=== PATIENT | female | born 1955 | race Caucasian/White ===

== ENCOUNTER 2025-02-17 13:08 | Outpatient (AMB) | payer MEDICARE, OTHER, SELFPAY ==
--- NOTE | 2025-02-17 13:13 | A.OFFPC_ITS ---
Vital Signs 02/17/25 13:14 Height 4 ft 10.27 in Weight 105 lb 2 oz BMI 21.8 BP 108/74 Blood Pressure Location Lt brachial Position Sitting Respiration 12 Pulse 86 Pulse Source Pulse Oximeter Temp 98.4 F Temp Source Oral Pulse Oximetry (%) 98 Oxygen Delivery Method Room Air Intake Visit Reasons: [facility] from [facility] / Thyroid med Intake Note: New patient visit Parking Lot Attendant Required: No Allergies Codeine Sulfate Allergy (Unknown, Uncoded 02/17/25 13:14) Unknown Tobacco use date assessed: 02/17/25 Fall risk assessment: No Falls in past year Last assessed Fall Risk: 02/17/25 Dental Screening Dental Screen Date: 02/17/25 Did you have a dental visit in the last 12 months?: Yes Did you have a dental problem in the last 6 months where you did not have access to dental care?: No Was dental information given to patient?: Patient has dentist HPI HPI Comments History of Present Illness Details Kaci is a 70 year old female with a past medical history of hypothyroid, osteopenia [facility]. Hypothyroid-On levothyroxine 100mcg daily. Notes last TSH in November-says normal Sees dermatology-Shara Hurtado Has seen hand ctr [facility]-they closed. History of wrist fracture remotely- repaired at [facility] 08/01/2016-10 years Mammogram 05/2024-[facility] DXA 01/2023 [facility]-11/14/2024 Tdap 09/2020 Shingrix Pneumo series 2020 RSV last year ROS CONSTITUTIONAL: Denies weight loss, fever and chills. HEENT: Denies changes in vision and hearing. RESPIRATORY: Denies SOB and cough. CV: Denies palpitations and CP GI: Denies abdominal pain, nausea, vomiting and diarrhea. : Denies dysuria and urinary frequency. MSK: Denies new myalgia and joint pain. SKIN: Denies rash and pruritus. NEUROLOGICAL: Denies headache PSYCHIATRIC: Denies recent changes in mood. PHYSICAL EXAM: GENERAL: Alert and oriented x 3. NAD EYES: EOMI. Anicteric. HENT: Moist mucous membranes. No scleral icterus. No cervical lymphadenopathy. LUNGS: Clear to auscultation bilaterally. CARDIOVASCULAR: Regular rate and rhythm. No murmur. No JVD. ABDOMEN: Soft, non-tender +bs EXTREMITIES: No edema. Non-tender. SKIN: No rashes or lesions. Warm. NEUROLOGIC: No focal neurological deficits. CN II-XII grossly intact PSYCHIATRIC: Cooperative. Appropriate mood and affect [facility] History History of carpal tunnel release H/O colonoscopy Family History Family/Other Colon cancer Breast cancer Brother Heart attack HTN (hypertension) Maternal Grandmother Brain tumor Maternal Grandfather Skin cancer Family/Other No problems noted. Maternal Aunt Breast cancer Mother Depression Anemia Cataract Father Cataract Stroke Sister Diabetes Social History Housing: House e-Cigarette/Vaping Use: Never Used Second Hand Smoke Exposure: No service: Yes Cognitive needs: No Hearing needs: Yes (hearing aid right side) Vision needs: Yes (glasses) Questionnaire PHQ-9 Over the last 2 weeks, how often have you been bothered by any of the following problems? 1. Little interest or pleasure in doing things: not at all 2. Feeling down, depressed, or hopeless: not at all 3. Trouble falling or staying asleep, or sleeping too much: not at all 4. Feeling tired or having little energy: not at all 5. Poor appetite or overeating: not at all 6. Feeling bad about yourself - or that you are a failure or have let yourself or your family down: not at all 7. Trouble concentrating on things, such as reading the newspaper or watching television: not at all 8. Moving or speaking so slowly that other people could have noticed. Or the opposite - being so fidgety or restless that you have been moving around a lot more than usual: not at all 9. Thoughts that you would be better off or of hurting yourself in some way: not at all Total score: 0 Depression Screening Interpretation: Negative Depression Screening Done: Yes [id number] - PHQ-9 Billing: Yes Source: Developed by Drs. Armando Lemus, Carmen Tan, Jeremias Lubin and colleagues, with an educational juliann from [employer] To Get Approved For. Thrive Questionnaire I am a: Patient What is your living situation today?: I have a steady place to live Within the past 12 months, did the food you bought not last and you didn't have the money to get more?: Never true Within the past 12 months, did you worry whether your food would run out before you got money to buy more?: Never true Do you have trouble paying for medicines?: No Do you have trouble getting transportation to medical appointments?: No Do you have trouble paying your heating and electricity bill?: No Do you have trouble taking care of your child, family member or friend?: No Do you have trouble with day-to-day activities such as bathing, preparing meals, shopping, managing finances, etc.?: No Are you currently unemployed and looking for a job?: No Are you interested in more education?: No Please select the resources that you would like help with: None Currently or been in a relationship where the following occur: No concerns reported THRIVE Score: 0 AUDIT C Alcohol Use Questionnaire (AUDIT-C) 1. How often do you have a drink containing alcohol?: 4 or more times a week 2. How many drinks containing alcohol do you have on a typical day when you are drinking?: 1 or 2 3. How often do you have six or more drinks on one occasion?: Never Total Score: 4 GEOVANNI-7 AMB Questionnaire GEOVANNI-7 Feeling nervous, anxious, or on edge: 0 = Not at all Not being able to stop or control worryin = Not at all Worrying too much about different things: 0 = Not at all Trouble relaxin = Not at all Being so restless that it is hard to sit still: 0 = Not at all Becoming easily annoyed or irritable: 0 = Not at all Feeling afraid as if something awful might happen: 0 = Not at all Total GEOVANNI-7 score (0-4 normal; 5-9 mild; 10-14 moderate; 15-21 severe): 0 Source: Developed by Drs. Armando Lemus, Carmen Tan, Jeremias Lubin and colleagues, with an educational juliann from [employer] To Get Approved For. Physical exam (Primary Care) Vital Signs: Last Vital Signs Temp 98.4 F 02/17/25 13:14 Pulse 86 02/17/25 13:14 Resp 12 02/17/25 13:14 BP 108/74 02/17/25 13:14 Pulse Ox 98 02/17/25 13:14 Oxygen Delivery Method Room Air 02/17/25 13:14 BMI result Body Mass Index 21.8 Tobacco/Smoking Status: Tobacco use Status Tobacco use date assessed 02/17/25 02/17/25 13:22 e-Cigarette/Vaping Use Never Used 02/17/25 13:22 PHQ-9: PHQ-9 Score PHQ-9: Total score 0 02/19/25 14:49 Depression Screening Interpretation: Negative Currently or been in a relationship where the following occur: No concerns reported Coding Level of Care Code New Pt Level 4 (25578) Complex EM visit Add On G2211 Diagnoses Hypothyroidism, unspecified type E03.9 Hypothyroidism type: unspecified Osteopenia, unspecified location M85.80 Osteopenia location: unspecified Additional Codes PHQ-9 - 97511 - PHQ-9 Billing: Yes ([id number]) Assessment & Plan Assessment & Plan (1) Hypothyroid: Code(s): E03.9 - Hypothyroidism, unspecified Category: Medical Qualifiers: Hypothyroidism type: unspecified Qualified Code(s): E03.9 - Hypothyroidism, unspecified (2) Osteopenia: Code(s): M85.80 - Other specified disorders of bone density and structure, unspecified site Category: Medical Qualifiers: Osteopenia location: unspecified Qualified Code(s): M85.80 - Other specified disorders of bone density and structure, unspecified site Plan 70 year old to establish care Past medical, surgical social reviewed Hypothyroid-stable on levothyroxine. lasbs ordered Osteopenia-continue supplements Orders: Orders Complete Blood Count Auto Diff 02/17/25 E03.9 - Hypothyroidism, unspecified, M85.80 - Other specified disorders of bone density and structure, unspecified site, Z13.0 - Encounter for screening for diseases of the blood and blood- forming organs and certain disorders involving the immune mechanism, Z13.220 - Encounter for screening for lipoid disorders, Z13.228 - Encounter for screening for other metabolic disorders, Z76.89 - Persons encountering health services in other specified circumstances Comprehensive Met. Panel 02/17/25 E03.9 - Hypothyroidism, unspecified, M85.80 - Other specified disorders of bone density and structure, unspecified site, Z13.0 - Encounter for screening for diseases of the blood and blood-forming organs and certain disorders involving the immune mechanism, Z13.220 - Encounter for screening for lipoid disorders, Z13.228 - Encounter for screening for other metabolic disorders, Z76.89 - Persons encountering health services in other specified circumstances TSH reflex Free T4 02/17/25 E03.9 - Hypothyroidism, unspecified, M85.80 - Other specified disorders of bone density and structure, unspecified site, Z13.0 - Encounter for screening for diseases of the blood and blood-forming organs and certain disorders involving the immune mechanism, Z13.220 - Encounter for screening for lipoid disorders, Z13.228 - Encounter for screening for other metabolic disorders, Z76.89 - Persons encountering health services in other specified circumstances Lipid Panel 02/17/25 E03.9 - Hypothyroidism, unspecified, M85.80 - Other specified disorders of bone density and structure, unspecified site, Z13.0 - Encounter for screening for diseases of the blood and blood-forming organs and certain disorders involving the immune mechanism, Z13.220 - Encounter for scre ening for lipoid disorders, Z13.228 - Encounter for screening for other metabolic disorders, Z76.89 - Persons encountering health services in other specified circumstances Vitamin D 25-OH (D2 and D3) 02/17/25 E03.9 - Hypothyroidism, unspecified, M85.80 - Other specified disorders of bone density and structure, unspecified site, Z13.0 - Encounter for screening for diseases of the blood and blood- forming organs and certain disorders involving the immune mechanism, Z13.220 - Encounter for screening for lipoid disorders, Z13.228 - Encounter for screening for other metabolic disorders, Z76.89 - Persons encountering health services in other specified circumstances
[2025-02-17 13:14] VITALS: BP 108/74; PULSE 86; RESP 12; TEMP 36.9; O2SAT 98; BMI 21.8
--- OUTSIDE RECORDS SUMMARY | 2025-02-17 18:15 | XMS_ITS ---
Author Name [facility] Organization Unknown Care Team Organization Name Specialty Phone Email Start Date End Da te [facility] 04/12/20222023
--- OUTSIDE RECORDS SUMMARY | 2025-02-17 18:15 | XMS_ITS | Clinical Summary ---
Author Organization [facility] [address] [facility] lding Address [address] [place] [address] Phone Care Team Providers Care Tile Roofer Name Role Phone Jasmine Middleton MD Primary Care Provider [phone] Allergies Active Allergy Reactions Criticality Noted Date Comments Codeine Hivolivia,Unknown Medium 08/19/2005 Mold 12/31/2020 Other 12/31/2020 Seasonal Medications calcium carbonate 1,500 mg (600 mg elemental calcium) tablet Take 800 mg by mouth daily. Active multivitamin with minerals (MULTIPLE VITAMIN-MINERALS ORAL) Take by mouth 2 Times Daily. Active estradioL (ESTRACE) 0.01 % (0.1 mg/gram) vaginal cream Use nightly x2 weeks, the 2x per week 1 Active ascorbic acid (VITAMIN C) 500 mg tablet 2 qd Active nystatin-triamcinol one (MYCOLOG II) ointment Apply a thin layer twice daily for two weeks, then nightly 30 g 5 Active levothyroxine (SYNTHROID, LEVOTHROID) 100 mcg tabletIndications:A cquired hypothyroidism Take 1 tablet (100 mcg total) by mouth 1 (one) time each day. 90 tablet 1 5 Active Active Problems Problem Noted Date Diagnosed Date Lichen sclerosus of vulva 11/14/2024 Lumbar stenosis with neurogenic claudication Vaginal dryness, menopausal 01/01/2021 Overview (02/29/2024): Last Assessment & Plan: Rx for vaginal estrace cream given. Reviewed instructions for use. Lightheadedness 07/21/2015 Atrophic vaginitis 01/15/2015 Hypothyroidism 08/19/2005 Encounters Date Type Department Care Team Description 01/06/2025 Telephone Internal Medicine - [address] [id number] Jasmine Middleton MD 11/25/2024 Telephone Internal Medicine - [address] [phone] Camryn Mcfarlane MA from Last 3 Months Immunizations Name Administration Dates Next Due COVID-19 (Moderna/Spikevax) 12yo and older 08/20/2023,03/07/2023 Hepatitis A Adult (Havrix; V aqta) 19yo and older 05/17/2002,03/11/2002 Hepatitis B (Jsecsog-L-Pdhms , Recombivax HB-Adult) 19yo and older 10/02/2020,03/06/2019 IPV Inactivated polio (Ipol) 6wks and older 05/17/2002 Influenza Quadravalent, 0.5m l (Fluad) 65yo and older 03/04/2021 Influenza Quadravalent, 0.5m l (Fluzone High-dose) 65yo and older 03/25/2023,03/09/2020 Influenza Quadravalent, MDCK , 0.5ml, with preservative (Flucelvax) 6mo and older 03/09/2020,02/21/2018,05/25/2017 Influenza trivalent, 0.5mL ( Fluzone High-dose) 65yo and older 04/10/2024,03/25/2023,03/24/2022,02/19,03/29/2016,05/12/2015,04/30/2013 ,04/04/2012 Influenza trivalent, with pr eservative (Fluzone; Afluria) 6mo and older 03/29/2016,05/12/2015,04/30/2013,04/04,05/08/2008 Influenza, Unspecified 03/09/2020 Meningococcal Polysaccharide 05/17/2002 Pfizer SARS-CoV-2 COVID-19, mRNA, LNP-S, preservative free 07/31/2020,07/10/2020 Pneumococcal conjugate 13 va lent (Prevnar 13, PCV13) 2mo and older 03/09/2020 Pneumococcal polysaccharide 23 valent (Pneumovax 23) 2yo and older 10/19/2022,03/09/2020 RSV, bivalent, protein subun it RSVpreF, 0.5mL, Preservative Free (ABRYSVO) 60yo and older or 32 through 36 wks of 02/19/2024 Td Tetanus diptheria (Tdvax) 7yo and older 09/04/2000,09/04/2000 Td, Unspecified 09/04/2000 Tdap Tetanus diptheria acell ular pertussis (Boostrix; Adacel) 7yo and older 09/22/2020,10/01/2009 Typhoid VICPS (Typhim Vi) 2y o and older 03/11/2002 Yellow Fever (YF-VAX) 9mo and older 03/11/2002 Zoster Live 05/12/2015 Zoster recombinant (Shingrix ) 19yo and older 05/24/2019,02/19/2019 Surgical History Surgery Date Site/Laterality Comments OTHER SURGICAL HISTORY 09/08 PROCEDURE: IN OPEN TX TRANS-SCAPHOPERILUNAR FRACTURE DISLC; COMMENT: Left wrist dhiraj repair CARPAL TUNNEL RELEASE 03/10 PROCEDURE: IN NEUROPLASTY &/TRANSPOS MEDIAN NRV CARPAL TUNNE OTHER SURGICAL HISTORY 07/15 PROCEDURE: IN EXC B9 LESION MRGN XCP SK TG T/A/L 0.5 CM/<; COMMENT: left axillary cyst removed COLONOSCOPY 07/04/06 PROCEDURE: HISTORICAL COLONOSCOPY; COMMENT: normal OTHER SURGICAL HISTORY 08/01/16 PROCEDURE: COLON CA SCRN NOT HI RSK IND; COMMENT: normal; repeat in 10 yrs Medical History Medical History Date Comments Unspecified hypothyroidism DX:Un specified hypothyroidism Pure hypercholesterolemia DX:Pur e hypercholesterolemia Venereal disease, unspecified DX :Venereal disease, unspecified; COMMENT: Herpes genitalis Atrophic vaginitis DX:Atrophic v aginitis Lightheadedness 07/21/2015 DX:Lightheadedne ss CTS (carpal tunnel syndrome) Herpes Varicella Family History Medical History Relation Name Comments Ovarian cancer Aunt maternal Hypertension Brother 1 Brother Heart attack Brother 2 Hyperlipidemia Father Dad high, also ca rotid stenosis Other: cataracts Father Dad Prostate cancer Father Dad Stroke Father Dad Other: skin problems Maternal Grandfather Other cancer Maternal Grandmother brain t umor Anemia Mother Depression Mother Other: Covid Mother Other: cataracts Mother Other: tmj Mother Other cancer Mother's side ovarian, aunt Breast cancer Other 1 mat aunt x3 3 materanl aun ts Breast cancer Other 2 mat cousin x's2 2 maternal cousins - in 40s and 50s Colon cancer Other 3 niece under 50 Diabetes Sister 1 Sister Relation Name Status Comments Aunt maternal Brother 1 Brother Brother 2 Brother 3 Alive HTN, hernia; ty pe 2 diabetic; DVT Brother 4 Alive [place] over age 50 Father Dad Prostate cancer , chol, cataracts,HTN,COLON POLYPS, pagets, karposis sarcoma on feet Maternal Grandfather (Age 80s) N at causes Maternal Grandmother (Age 77) Br ain tumor Mother Depression, [place] prolapse, TMJ, b12 def, cataracts,BREAST CYSTS,TRIGEMINAL NEURALGIA Mother's side Other 1 mat aunt x3 Alive Other 2 mat cousin x's2 Other 3 Alive Paternal Grandfather (Age 60s) U [place] Paternal Grandmother (Age 102) O ld age Sister 1 Sister Sister 2 Alive Healthy Sister 3 Alive DM I since teen ager Sister 4 Alive Healthy Social History Tobacco Use Types Packs/Day Years Used Date Smoking Tobacco: Never Smokeless Tobacco: Never Tobacco Cessation:Counseling Given: Not Answered Alcohol Use Standard Drinks/Week Comments Yes 14 (1 standard drink = 0.6 oz pu re alcohol) Housing Instability Answer Date Recorde d Are you worried that in the next 2 months you may not have stable housing? No 04/04/2024 Food Access & Nutrition Answer Date Rec orded Do you have access to a vari ety of food including fruits and vegetables? Yes 04/04/2024 Health Literacy Answer Date Recorded How often do you need to hav e someone help you when you read instructions, pamphlets, or other written material from your doctor or pharmacy? Never 04/04/2024 Caregiver: How often do you need to have someone help you when you read instructions, pamphlets, or other written material from your doctor or pharmacy? Not on file 04/04/2024 Transportation Answer Date Recorded Has the lack of transportati on kept you from meetings, work, or from getting things needed for daily living? No Has the lack of transportati on kept you from medical appointments or from getting medications? No 04/04/2024 Social Isolation Answer Date Recorded How often do you feel lonely or isolated from th ose around you? Never 04/04/2024 Food Risk Answer Date Recorded Within the past 12 months we worried whether our food would run out before we got money to buy more. Never true 04/04/2024 Within the past 12 months th e food we bought just didn't last and we didn't have money to get more. Never true 04/04/2024 Living Situation Answer Date Recorded What is your living situation? 1 Comments No Sex and Gender Information Value Date Recorded Sex Assigned at Female 05/21/2024 8:30 AM EST Legal Sex Female 2:04 PM EST Gender Identity Female 05/21/2024 8:30 AM EST Sexual Orientation Straight 05/21/2024 8: 30 AM EST Obstetrics History Para Term AB IAB SAB Ectopic Multiple Livin g Live Births 0 0 0 0 0 0 0 0 Last Filed Vital Signs Vital Sign Reading Time Taken Comments Blood Pressure 113/70 11/14/2024 10:31 AM EDT Pulse 74 11/14/2024 10:31 AM EDT Temperature 36.1 C (97 F) 04/11/2024 1:20 PM EST Respiratory Rate 12 11/14/2024 10:31 AM EDT Oxygen Saturation - - Inhaled Oxygen Concentration - - Weight 47.7 kg (105 lb 3.2 oz) 11/14/2024 10:31 AM EDT Height 152.4 cm (5') 11/14/2024 10:31 AM EDT Body Mass Index 20.55 11/14/2024 10:31 AM EDT Plan of Treatment Upcoming Encounters Date Type Department Care Team (Late st Contact Info) Description 04/15/2025 10:45 AM EST Appointment Bone Density - [facility] [address] [place] [phone] Health Maintenance Due Date Last Done Comments IPV Vaccines (2 of 3 - Adult catch-up series) 06/14/2002 05/17/2002 Hepatitis B Vaccines (3 of 3 - 19+ 3-dose series) 11/27/2020 10/02/2020, 03/06/2019 Medicare Annual Wellness Visit 05/14/2022 Falls Risk Assessment 04/20/2024 04/20/2023 Influenza Vaccine (#1) 2025 , 03/25/2023, 03/25/2023, Additional history exists Social Influencers of Health Screening 04/04/2025 04/04/2024 Breast Cancer Screening 05/22/2026 05/22/20 24, 04/24/2023, 04/19/2022, Additional history exists Colorectal Cancer Screening: Colonoscopy 08/01/2026 08/01/2016 Cholesterol Screening (Lipid Panel) 10/22/2028 10/23/2023, 10/23/2023 DTaP,Tdap,and Td Vaccines (6 - Td or Tdap) 09/22/2030 09/22/2020, 10/01/2009, 09/04/2000, Additional history exists Osteoporosis Screening (Bone Density Screening) 02/01/2033 02/01/2023, 10/12/2020 Hepatitis A Vaccines Aged Out 05/17/2002, 03/11/20 02 No longer eligible based on patient's age to complete this topic Meningococcal ACWY Vaccine Aged Out 05/17/2002 N o longer eligible based on patient's age to complete this topic Hepatitis C Screening Completed 04/25/2013 Zoster Vaccines Completed 05/24/2019, 02/03, 05/12/2015 Pneumococcal Vaccine: 50+ Years Completed 10/19/2022, 03/09/2020, 03/09/2020 RSV Immunization Adult Patients Completed 02/19/2024 COVID-19 Vaccine Completed 08/28/2024, , 08/20/2023, Additional history exists Depression Screening Completed 11/08/2024 HIB Vaccines Aged Out No longer eligi ble based on patient's age to complete this topic HPV Vaccines Aged Out No longer eligi ble based on patient's age to complete this topic MMR Vaccines Aged Out No longer eligi ble based on patient's age to complete this topic Meningococcal B Vaccine Aged Out No l onger eligible based on patient's age to complete this topic RSV Immunization Patients Under 20 months Aged Out No longer eligible based on patient's age to complete this topic Varicella Vaccines Aged Out No longer eligible based on patient's age to complete this topic Procedures Procedure Name Priority Date/Time Associated Diagnosis Comments MG MAMMO DIGITAL SCREENING W JONATHAN BILAT Routine 05/22/2024 11:28 AM EST Encounter for screening mammogram for breast cancer LIPID PANEL Routine 10/23/2023 FALLS RISK ASSESSMENT Routine 04/20/2023 DXA BONE DENSITY STUDY 1+ SITS AXIAL SKEL Routine 02/01/2023 9:28 AM EDT Encounter for general adult medical examination without abnormal findings COLONOSCOPY Routine 08/01/2016 HEPATITIS C SCREENING Routine 04/25/2013 from Last 3 Months or Most Recently Relevant to Health Maintenance Results * MG Mammo Digital Screening w Jonathan bilat (05/22/2024 11:28 AM EST) Anatomical Region Laterality Modality Breast Bilateral Mammography 05/24/2024 2:42 PM EST Impressions 05/24/2024 2:47 PM EST Benign. BI-RADS CATEGORY: 1 - NEGATIVE RECOMMENDATION: Screening bilateral mammogram is recommended in 1 year. Mammo Location: [facility], [address] [place] [address], [id number], . -------- FINAL REPORT -------- Dictated By: NED GLASGOW Dictated Date: 05/24/2024 14:42 ET Assigned Physician: NED GLASGOW Reviewed and Electronically Signed By: NED GLASGOW Signed Date: 05/24/2024 14:47 ET Workstation ID: [id number] Transcribed By: Self Edit Transcribed Date: 05/24/2024 14:42 ET Narrative 05/24/2024 2:47 PM EST CLINICAL: 69 years old, Female, routine annual exam. The patient has 3 maternal aunts and 2 maternal cousins with breast cancer. This no personal history of breast cancer is reported. COMPARISON: 05/24/2023 through 03/04/2021 TECHNIQUE: Bilateral MLO and CC views were obtained digitally with 3-D mammogram (digital breast tomosynthesis). Computer-aided detection was utilized in evaluation of this exam (CAD). FINDINGS: There is no evidence of suspicious mass or architectural distortion. No worrisome calcifications are evident. There has been no significant change from prior exam(s). BREAST DENSITY: C - The breasts are heterogeneously dense which may obscure small masses. Procedure Note Ned Glasgow MD - 05/24/2024 CLINICAL: 69 years old, Female, routine annual exam. The patient has 3maternal aunts and 2 maternal cousins with breast cancer. This nopersonal history of breast cancer is reported. COMPARISON: 05/24/2023 through 03/04/2021 TECHNIQUE: Bilateral MLO and CC views were obtained digitally with 3-Dmammogram (digital breast tomosynthesis). Computer-aided detection wasutilized in evaluation of this exam (CAD). FINDINGS: There is no evidence of suspicious mass or architectural distortion. Noworrisome calcifications are evident. There has been no significantchange from prior exam(s). BREAST DENSITY: C - The breasts are heterogeneously dense which mayobscure small masses. IMPRESSION: Benign. BI-RADS CATEGORY: 1 - NEGATIVE RECOMMENDATION: Screening bilateral mammogram is recommended in 1 year. Mammo Location: [facility], [address] [place] [address], [id number], . -------- FINAL REPORT -------- Dictated By: NED GLASGOW Dictated Date: 05/24/2024 14:42 ET Assigned Physician: NED GLASGOW Reviewed and Electronically Signed By: NED GLASGOW Signed Date: 05/24/2024 14:47 ET Workstation ID: [id number] Transcribed By: Self Edit Transcribed Date: 05/24/2024 14:42 ET us Self Referral Sppl IMG BI PROCEDURES Final Resul t * (ABNORMAL) Lipid panel (10/23/2023) LDL/HDL Ratio 2 0 - 4 Triglycerides 74 0 - 150 mg/dL Cholesterol 257(A) 0 - 200 mg/dL HDL 114 >=40 mg/dL LDL Cholesterol 129(A) 0 - 100 mg/dL Blood Venous blood specimen / Unknown Historical Provider LAB BLOOD ORDERABLES Toshia l Result * Falls Risk Assessment (04/20/2023) [facility] Falls Risk Assessment Abstracted Historical Provider HEALTH MAINTENANCE Final Result * DXA BONE DENSITY STUDY 1+ SITS AXIAL SKEL (02/01/2023 9:28 AM EDT) Anatomical Region Laterality Modality Bone Densitometr y 10/19/2022 3:23 PM EDT Narrative 02/01/2023 10:23 AM EDT BONE DENSITY (DEXA) Lumbar Spine T-score is 0.0. (SD relative to 20-29 y/o adult) Z-score is 2.0. (SD relative to age matched peers) This is considered normal by WHO criteria. Left Hip T-score is -2.2. Z-score is -0.5. This is considered osteopenia by WHO criteria. IMPRESSION: Patient is considered to have osteopenia by WHO criteria. This patient has an 11% risk of major osteoporotic fracture and a 2.2% risk of hip fracture over the next 10 years. (World Health Organization Fracture Risk Assessment) [facility] Department of Internal Medicine recommends using National Osteoporosis Foundation (NOF) guidelines in treatment decisions related to osteoporosis. NOF guidelines suggest considering treatment for postmenopausal women and men aged 50 or older presenting with the following: History of hip or vertebral fracture. T-score = -2.5 (DXA) at the femoral neck, total hip, or spine, after appropriate evaluation to exclude secondary causes. Low bone mass (T-score between -1.0 and -2.5 at the femoral neck or spine) AND a 10-year probability of a hip fracture = 3% OR a 10-year probability of a major osteoporosis-related fracture = 20% based on the [place]-adapted WHO algorithm Please note that all treatment decisions require clinical judgment and consideration of individual patient factors, including patient preferences, co-morbidities, previous drug use, risk factors not captured in the FRAX model (e.g., frailty, falls, vitamin D deficiency, increased bone turnover, interval significant decline in bone density) and possible under- or over-estimation of fracture risk by FRAX. Optional alternative screening schedule based on cindy Barrera., [facility] June 23, 2011 for patients with osteopenia (based on hip BMD T-score) is as follows: * advanced osteopenia (T scores -2.00 to -2.49), BMD testing every year * moderate osteopenia (T scores -1.50 to -1.99), BMD testing every 5 years mild osteopenia or normal BMD (T scores -1.50 and higher), BMD testing every 15 years Procedure Note Rona Lofton MD - 07/11/2023 BONE DENSITY (DEXA) Lumbar Spine T-score is 0.0. (SD relative to 20-29 y/o adult) Z-score is 2.0. (SD relative to age matched peers) This is considered normal by WHO criteria. Left Hip T-score is -2.2. Z-score is -0.5. This is considered osteopenia by WHO criteria. IMPRESSION: Patient is considered to have osteopenia by WHO criteria. This patient hasan 11% risk of major osteoporotic fracture and a 2.2% risk of hip fracture over the next 10years. (World Health Organization Fracture Risk Assessment) [facility] Department of Internal Medicinerecommends using National Osteoporosis Foundation (NOF) guidelines in treatment decisionsrelated to osteoporosis. NOF guidelines suggest considering treatment forpostmenopausal women and men aged 50 or older presenting with the following: History of hip or vertebral fracture. T-score = -2.5 (DXA) at the femoral neck, total hip, or spine, afterappropriate evaluation to exclude secondary causes. Low bone mass (T-score between -1.0 and -2.5 at the femoral neck or spine)AND a 10-year probability of a hip fracture = 3% OR a 10-year probability of a majorosteoporosis-related fracture = 20% based on the [place]-adapted WHO algorithm Please note that all treatment decisions require clinical judgment andconsideration of individual patient factors, including patient preferences, co- morbidities,previous drug use, risk factors not captured in the FRAX model (e.g., frailty, falls, vitaminD deficiency, increased bone turnover, interval significant decline in bone density) andpossible under- or over-estimation of fracture risk by FRAX. Optional alternative screening schedule based on cindy Barrera., NEJMJanuary 2011 for patients with osteopenia (based on hip BMD T-score) is as follows: * advanced osteopenia (T scores -2.00 to -2.49), BMD testing every year * moderate osteopenia (T scores -1.50 to -1.99), BMD testing every 5years mild osteopenia or normal BMD (T scores -1.50 and higher), BMD testingevery 15 years Arnold Tirado DO [facility] DXA PROCEDURES Final Result * Colonoscopy (08/01/2016) Pathologist [facility] Colonoscopy No Interpretation , Abstracted Anatomical Region Laterality Modality Other Historical Provider HEALTH MAINTENANCE Final Result * Hepatitis C Screening (04/25/2013) Pathologist [facility] Hepatitis C Screening Abstracted [facility] Provider HEALTH MAINTENANCE Final Result from Last 3 Months or Most Recently Relevant to Health Maintenance Insurance [facility] Care Teams Tile Roofer Relationship Specialty Start Date End Date Jasmine Middleton MD [address] [facility] [place] [phone] PCP - General Internal Medicine 10/25/24
--- OUTSIDE RECORDS SUMMARY | 2025-02-17 18:15 | XMS_ITS | Clinical Summary ---
Author Organization [facility] Address [address] [place] [address] Care Team Providers Care Superintendent Transportation Name Role Phone Arsenio Huber MD Primary Care Provider [phone] Allergies Active Allergy Reactions Criticality Noted Date Comments Shu Other (See Comments) Medium 08/19/2005 Seasonal 12/31/2020 Medications Medication Sig Dispensed Refills Start Date End Date Status ascorbic acid (VITAMIN C) 500 MG tablet Take by mouth. 0 Active Synthroid 100 MCG tablet 0 04/20/2021 Active Calcium Carbonate-Vitamin D 600-200 MG-UNIT TABS Take by mouth. 0 Active Family History Medical History Relation Name Comments Clotting disorder Brother Diabetes Brother Cancer Father Relation Name Status Comments Brother Father Social History Tobacco Use Types Packs/Day Years Used Date Smoking Tobacco: Never Assessed Sex and Gender Information Value Date Recorded Sex Assigned at Not on file Gender Identity Not on file Sexual Orientation Not on file Job Start Date Occupation Industry Not on file Not on file Not on file Last Filed Vital Signs Vital Sign Reading Time Taken Comments Blood Pressure - - Pulse - - Temperature - - Respiratory Rate - - Oxygen Saturation - - Inhaled Oxygen Concentration - - Weight 48.5 kg (107 lb) 04/23/2021 2:09 PM EST Height 152.4 cm (5') 04/23/2021 2:09 PM EST Body Mass Index 20.9 04/23/2021 2:09 PM EST Plan of Treatment Health Maintenance Due Date Last Done Comments Hepatitis C Screening 1955 Depression Screening 1967 Preventative Health Evaluation 1973 Colon Cancer Screening (Colonoscopy) 01/21/2000 Breast Cancer Screening (Mammogram) 2005 DTap / Tdap / Td (2 - Td or Tdap) 10/02/2019 10/01/2009 Fall Risk Assessment 01/21/2020 Osteoporosis Screening (DEXA Scan) 01/21/2020 Pneumococcal Vaccine (1 of 1 - PCV) 01/21/2020 COVID-19 Vaccine (3 - season) 2025 07/31/2020, 07/10/2020 Influenza Vaccine (#1) 2025 9, 02/21/2018, 05/25/2017, Additional history exists RSV Adult > 60+ Yrs or (1 - 1-dose 75+ series) 2030 Shingrix-Zoster Vaccine Completed 05/24/2019, 02/19 Hepatitis B Vaccines Aged Out No long er eligible based on patient's age to complete this topic RSV Ped < 20 months Aged Out No longe r eligible based on patient's age to complete this topic Care Teams Superintendent Transportation Relationship Specialty Start Date End Date Arsenio Huber MD PCP - General Early Learning Teacher 04/23/21
== END 2025-02-17 13:46 | disposition home or self-care (01) ==
PROVIDERS: PCP Internal Medicine; Visit Provider Internal Medicine
DX: E03.9 Hypothyroidism, unspecified (principal); M85.80 Other specified disorders of bone density and structure, unspecified site

== ENCOUNTER → 2025-02-17 13:08 | Outpatient (BNVA) | payer MEDICARE, OTHER, SELFPAY | PROVIDERS: PCP Internal Medicine; Visit Provider Internal Medicine | DX: Z76.89 Persons encountering health services in other specified circumstances (principal); E03.9 Hypothyroidism, unspecified; M85.80 Other specified disorders of bone density and structure, unspecified site; Z79.899 Other long term (current) drug therapy; Z13.31 Encounter for screening for depression | CPT/HCPCS: 96127; 99202 ==